=== PATIENT | female | born 1965 | race Caucasian/White ===

== ENCOUNTER 2020-01-12 12:06 | Emergency (ER) | payer BC, OTHER ==
[~2020-01-12] VITALS: Ht 162.6 cm; Wt 63.5 kg
[2020-01-12 12:41] VITALS: BP 120/76
[2020-01-12] MEDS ORDERED: LIDOCAINE 1% HCL (LOCAL ANESTH.) INJ 20ML MDV IJ ONE (13:30)
== END 2020-01-12 14:19 | disposition home or self-care (01) ==
LOC: ER 12:06
DX: S71.111A Laceration without foreign body, right thigh, initial encounter (principal); W26.9XXA Contact with unspecified sharp object(s), initial encounter; Y93.89 Activity, other specified; Y92.89 Other specified places as the place of occurrence of the external cause; Y99.8 Other external cause status
CPT/HCPCS: 12002; 99283; J2001